=== PATIENT | female | born 1985 | race American Indian/Alaskan Native ===

== ENCOUNTER 2019-06-23 10:30 | Emergency (ER) | payer BC ==
[2019-06-23 10:49] VITALS: BP 129/88
--- NOTE | 2019-06-23 12:38 | XRay Report ---
CHEST 2 VIEWS INDICATION: productive cough with fever. COMPARISON: None. FINDINGS: Support devices: None. Heart: Within normal limits. Pulmonary vasculature: Normal. Lungs/pleura: No acute air space or interstitial disease. No pneumothorax. Additional findings: Normal bones and soft tissues. IMPRESSION: Normal chest. Signer Name: Brad Brand MD Signed: 06/23/2019 12:34 PM Workstation Name: [id number]
[2019-06-23] MEDS ORDERED: dexAMETHasone 20 MG/5 ML VIAL IM ONE (12:55)
--- NOTE | 2019-06-23 13:20 | Emergency Department Report ---
- General Chief Complaint: Upper Respiratory Infection Stated Complaint: COLD SX/CHEST HURTS Time Seen by Provider: 06/23/19 11:40 Source: patient Mode of arrival: Ambulatory Limitations: No Limitations - History of Present Illness Initial Comments: Patient is a 34-year-old [place] female who states she's had a cough cold congestion for approximately a week. Patient has had some mild body aches and subjective fevers and chills. Patient states her cough is productive of greenish yellow mucus. She is also has mild nausea. Patient went to urgent care 2 days ago and was given albuterol inhaler only. She was told if she got worse she should come to the emergency department. Patient states symptoms have not resolved and she does feel more ill than she did 2 days ago. Patient denies sore throat neck stiffness vomiting or diarrhea at this time. - Related Data Previous Rx's Medication Instructions Recorded Last Taken Type ALBUTEROL Inhaler (OR & NICU) 2 puff IH QID PRN #1 inhalation 06/23/19 Unknown Rx [ProAir HFA Inhaler] Benzonatate [Tessalon Perles] 100 mg PO Q8HR #10 capsule 06/23/19 Unknown Rx predniSONE [Deltasone] 20 mg PO QDAY #5 tab 06/23/19 Unknown Rx Allergies Allergy/AdvReac Type Severity Reaction Status Date / Time Sulfa (Sulfonamide AdvReac Shortness Unverified 12/29/13 15:23 Antibiotics) of Breath ED Review of Systems ROS: Stated complaint: COLD SX/CHEST HURTS Other details as noted in HPI Comment: All other systems reviewed and negative ED Past Medical Hx - Surgical History Additional Surgical History: KIDNEY DONATION - Social History Smoking Status: Never Smoker Substance Use Type: None - Medications Home Medications: Home Medications Medication Instructions Recorded Confirmed Last Taken Type ALBUTEROL Inhaler (OR & NICU) 2 puff IH QID PRN #1 inhalation 06/23/19 Unknown Rx [ProAir HFA Inhaler] Benzonatate [Tessalon Perles] 100 mg PO Q8HR #10 capsule 06/23/19 Unknown Rx predniSONE [Deltasone] 20 mg PO QDAY #5 tab 06/23/19 Unknown Rx ED Physical Exam - General Limitations: No Limitations General appearance: alert, in no apparent distress - Head Head exam: Present: atraumatic, normocephalic - Eye Eye exam: Present: normal appearance - ENT ENT exam: Present: mucous membranes moist - Neck Neck exam: Present: normal inspection - Respiratory Respiratory exam: Present: normal lung sounds bilaterally. Absent: respiratory distress, wheezes, rales, rhonchi - Cardiovascular Cardiovascular Exam: Present: regular rate, normal rhythm, normal heart sounds. Absent: systolic murmur, diastolic murmur, rubs, gallop - GI/Abdominal GI/Abdominal exam: Present: soft, normal bowel sounds. Absent: distended, tenderness, guarding, rebound - Extremities Exam Extremities exam: Present: normal inspection - Back Exam Back exam: Present: normal inspection - Neurological Exam Neurological exam: Present: alert, oriented X3 - Psychiatric Psychiatric exam: Present: normal affect, normal mood - Skin Skin exam: Present: warm, dry, intact, normal color. Absent: rash ED Course Vital Signs 06/23/19 10:45 Temperature 98.9 F Pulse Rate 90 Respiratory 16 Rate Blood Pressure 129/88 [Right] O2 Sat by Pulse 99 Oximetry ED Medical Decision Making - Medical Decision Making Patient is a 34-year-old female who is presenting with cough and congestion. Chest x-ray is negative for acute infiltrate. Patient likely with a viral bronchitis which is prolonged. Patient to be started on steroid and continued with medication for symptomatic relief. Critical care attestation.: If time is entered above; I have spent that time in minutes in the direct care of this critically ill patient, excluding procedure time. ED Disposition Clinical Impression: Acute bronchitis Qualifiers: Bronchitis organism: unspecified organism Qualified Code(s): J20.9 - Acute bronchitis, unspecified Disposition: - TO HOME OR SELFCARE Is pt being admited?: Yes Does the pt Need Aspirin: No Condition: Stable Instructions: Acute Bronchitis (ED) Referrals: PRIMARY CARE, [Primary Care Provider] - 3-5 Days Time of Disposition: 13:20
== END 2019-06-23 13:28 | disposition home or self-care (01) ==
LOC: ED 10:30
DX: J20.9 Acute bronchitis, unspecified (principal); Z88.5 Allergy status to narcotic agent; Z79.899 Other long term (current) drug therapy
CPT/HCPCS: 71046; 96372; 99283; J1100

== ENCOUNTER 2020-03-30 13:53 | Emergency (ER) | payer SELFPAY ==
[2020-03-30 14:08] VITALS: BP 132/84
--- NOTE | 2020-03-30 15:32 | Emergency Department Report ---
Chief Complaint: Upper Respiratory Infection Stated Complaint: CHEST PAIN Time Seen by Provider: 03/30/20 15:26 - HPI History of Present Illness: Patient is 34-year-old healthy female presents the ED complaining of some mild chest pain worsening with intermittent coughing has been going on for couple days. Patient states that her girlfriend was at [place] a couple days ago and got tested for COVID-19. Patient states that the results is not out yet and she is still waiting. Patient states that since she has been with a girlfriend she is worried that she might have it and wanted to get tested today. She denies shortness of breath, fever, chills, nausea vomiting or abdominal pain - ROS Review of Systems: As noted in HPI - Exam Vital Signs: Vital Signs 03/30/20 14:07 Temperature 98.9 F Pulse Rate 93 H Respiratory 16 Rate Blood Pressure 132/84 O2 Sat by Pulse 99 Oximetry Physical Exam: GENERAL: Alert and oriented x3, no apparent distress, Normal Gait, atraumatic. HEAD: Head is normocephalic and a-traumatic. NOSE: Nose symetrical, Nontender,Nares appeared normal. LUNGS: Symetrical with respiration, No wheezing, no rales or crackles, CTAB. HEART: S1, S2 present, regular rate and rhythm without murmur, no rubs, no gallops. Non tender to palpation SKIN: Warm and dry, No lesions, No ulceration or induration present. MSE screening note: Focused history and physical exam performed. Due to findings the following was ordered: ED Medical Decision Making - Radiology Data Radiology results: report reviewed, image reviewed CHEST 2 VIEWS INDICATION: cough. COMPARISON: None FINDINGS: Support devices: None. Heart: Within normal limits. Lungs/pleura: No acute air space or interstitial disease. No pneumothorax. Additional findings: None. IMPRESSION: No acute findings. Signer Name: Timothy Stone Jr, MD Signed: 03/30/2020 3:35 PM Workstation Name: [id number] Transcribed By: CAMERON Dictated By: TIMOTHY STONE JR, MD Electronically Authenticated By: TIMOTHY STONE JR, MD Signed Date/Time: 03/30/20 1535 - Medical Decision Making 34-year-old female presents with concerns of covid and wanting testing done. no fever during the ED stay. Chest x-ray ordered. Chest x-ray shows Discussed symptomatic relief with [id number] medications. Discussed continue Tylenol as needed for fever and pain. Discussed increase fluids and diet intake. Discussed rest much needed. Discussed daily vitamin C for immune booster. Discussed follow-up with primary care physician in 3-5 days. Patient states she understands and will comply the following instructions and f ollow-up Vital signs stable. Patient is in no acute distress ED Disposition for MSE Clinical Impression: Bronchitis Disposition: MED SCREENING EXAM-LEFT Is pt being admited?: No Does the pt Need Aspirin: No Condition: Stable Instructions: Acute Bronchitis (ED) Additional Instructions: Make sure to follow up with the primary care physician as discussed. T take Tylenol as needed for the pain or fever. Take Robitussin for coughing If you have any worsening symptoms or develop new symptoms please return to ED immediately. Referrals: [facility] [Outside] - 3-5 Days [facility] [Outside] - 3-5 Days Forms: Work/School Release Form(ED) Time of Disposition: 15:46
--- NOTE | 2020-03-30 15:39 | XRay Report ---
CHEST 2 VIEWS INDICATION: cough. COMPARISON: None FINDINGS: Support devices: None. Heart: Within normal limits. Lungs/pleura: No acute air space or interstitial disease. No pneumothorax. Additional findings: None. IMPRESSION: No acute findings. Signer Name: Timothy Fontana Jr, MD Signed: 03/30/2020 3:35 PM Workstation Name: [id number]
== END 2020-03-30 16:08 | disposition left against medical advice (07) ==
LOC: ED 13:53
DX: J40 Bronchitis, not specified as acute or chronic (principal); Z53.21 Procedure and treatment not carried out due to patient leaving prior to being seen by health care provider
CPT/HCPCS: 71046